=== PATIENT | male | born 1960 | race Caucasian/White ===

== ENCOUNTER 2021-05-26 09:35 | Outpatient (CLI) | payer MEDICARE, SELFPAY ==
[2021-05-26 10:39] LABS: Influenza Control Valid (Valid); SARS-CoV-2 Ag Negative (Negative)
== END 2021-05-26 09:36 | disposition home or self-care (01) ==
PROVIDERS: PCP Internal Medicine; Visit Provider Internal Medicine
DX: J06.9 Acute upper respiratory infection, unspecified (principal); Z20.822 Contact with and (suspected) exposure to COVID-19
CPT/HCPCS: 87426; 87804; C9803